=== PATIENT | female | born 1990 | race Caucasian/White ===

== ENCOUNTER 2017-03-20 14:20 | Emergency (ER) | payer OTHER ==
[2017-03-20 14:54] LABS: HEMOGLOBIN 11.7 gm/dl (12.3-15.3); WHITE BLOOD COUNT 6.9 K/UL (4.5-11.0)
[2017-03-20 16:15] LABS: BUN/CREATININE RATIO 10 (0-10)
== END 2017-03-20 19:06 | disposition home or self-care (01) ==
LOC: ER1 14:20
PROVIDERS: Emergency Medicine
DX: O99.352 Diseases of the nervous system complicating pregnancy, second trimester (principal); G43.909 Migraine, unspecified, not intractable, without status migrainosus; Z3A.19 19 weeks gestation of pregnancy
CPT/HCPCS: 36415; 80053; 81001; 84703; 85025; 96360; 99283; J7030